=== PATIENT | male | born 1995 | race African-American/Black ===

== ENCOUNTER 2018-03-26 21:49 | Emergency (ER) | payer SELFPAY ==
[2018-03-26] MEDS ORDERED: Lidocaine 1% PF 5 ML VIAL ONE (22:19)
--- NOTE | 2018-03-26 22:43 | RAD ---
LEFT THUMB RADIOGRAPHS THREE VIEWS: 03/26/18 PROVIDED CLINICAL HISTORY: Left thumb pain status post injury. FINDINGS: No evidence for fracture or other acute osseous abnormality. Alignment appears anatomic. Joint spaces appear preserved. No evidence for radiopaque foreign body. IMPRESSION: No evidence for fracture. POS: [facility]
[2018-03-26] MEDS ORDERED: Bacitracin Zinc 1 Packet ONE (23:38)
== END 2018-03-26 23:46 | disposition home or self-care (01) ==
LOC: ERS 21:49
DX: S61.012A Laceration without foreign body of left thumb without damage to nail, initial encounter (principal); F17.210 Nicotine dependence, cigarettes, uncomplicated; W26.8XXA Contact with other sharp object(s), not elsewhere classified, initial encounter
CPT/HCPCS: 12002; J2001

== ENCOUNTER 2021-07-10 17:47 | Emergency (ER) | payer SELFPAY | END 2021-07-10 19:32 | disposition left against medical advice (07) | LOC: ERS 17:47 | DX: Z53.21 Procedure and treatment not carried out due to patient leaving prior to being seen by health care provider (principal) | CPT/HCPCS: 71046 ==

== ENCOUNTER 2022-10-16 09:18 | Emergency (ER) | payer OTHER, SELFPAY | END 2022-10-16 10:55 | disposition home or self-care (01) | LOC: ERS 09:18 | DX: T81.31XA Disruption of external operation (surgical) wound, not elsewhere classified, initial encounter (principal); F17.290 Nicotine dependence, other tobacco product, uncomplicated ==

== ENCOUNTER 2024-12-13 20:07 | Emergency (ER) | payer SELFPAY ==
[~2024-12-13 20:07] MED LIST: Iopamidol-370 76% 500 ML MDV (1 ML CHARGE) ONE
[2024-12-13 21:14] LABS: #Basophils Less than 0.03 10x3/uL (0.0-0.2); #Eosinophils 0.05 10x3/uL (0.0-0.7); #Monocytes 0.45 10x3/uL (0.11-0.59); #Neutrophils 4.92 10x3/uL (1.40-6.50); %Basophils 0.3 % (0.0-1.0); %Eosinophils 0.7 % (0.0-10.0); %Lymphocytes 24.6 % (21.0-51.0); %Monocytes 6.2 % (0.0-10.0); %Neutrophils 67.6 % (42.0-75.0); Hematocrit 39.3 % (42.0-52.0); Hemoglobin 13.2 g/dL (14.0-18.0); Mean Corpuscular Hemoglobin 28.4 pg (27.0-31.0); Mean Corpuscular Volume 84.7 fL (78.0-98.0); Platelet Count 224 10x3/uL (130-400); Red Blood Cell (RBC) Count 4.64 mill/uL (4.70-6.10); White Blood Cell (WBC) Count 7.27 10x3/uL (4.8-10.8)
[2024-12-13 21:27] LABS: ALT (SGPT) 18 U/L (Less than 45); AST (SGOT) 49 U/L (11-34); Albumin 4.6 g/dL (3.1-4.5); Alkaline Phosphatase 52 U/L (40-110); Anion Gap 15 mmol/L (10-20); BUN (Urea Nitrogen) 14 mg/dL (8.9-20.6); Bilirubin, Total 0.5 mg/dL (0.3-1.2); Calc. Creatinine Clearance 0 mL/min (70-130); Calcium 9.1 mg/dL (7.8-10.44); Carbon Dioxide 18 mmol/L (22-29); Chloride 107 mmol/L (98-107); Globulin 2.2 g/dL (2.4-3.5); Glucose 85 mg/dL (70-105); Lipase 77 U/L (8-78); Potassium 3.1 mmol/L (3.5-5.1); Sodium 137 mmol/L (136-145)
[2024-12-13 21:28] LABS: INR-International Normal Ratio 1.1; Prothrombin Time 14.0 sec (12.0-14.7)
[2024-12-13 21:29] LABS: PTT 22.0 sec (22.9-36.1)
[2024-12-13 22:27] LABS: Bacteria/HPF None Seen HPF (None Seen); CAUTI Indications for Culture Dysuria,urgency,freq; Glucose, Urine (Dipstick) Normal (Negative); Leukocyte Negative Leu/uL (Negative); Protein, Urine (Dipstick) 20 mg/dL (Neg-Trace); Specific Gravity, Urine 1.028 (1.002-1.036)
[2024-12-13 22:29] LABS: Urine Culture Reflex No No
[2024-12-13 22:30] LABS: Cocaine Metabolite Screen Negative (Negative); THC/Cannabinoid Screen PRELIM POSITIVE (Negative); Tricyclic Screen Negative (Negative)
== END 2024-12-13 22:26 | disposition home or self-care (01) ==
LOC: ERS 20:07
DX: S42.102A Fracture of unspecified part of scapula, left shoulder, initial encounter for closed fracture (principal); S27.322A Contusion of lung, bilateral, initial encounter; F10.129 Alcohol abuse with intoxication, unspecified; V89.2XXA Person injured in unspecified motor-vehicle accident, traffic, initial encounter
CPT/HCPCS: 29515; 36415; 70450; 71045; 71260; 72125; 74177; 80053; 80306; 80307; 81001; 83690; 85025; 85610; 85730; 86850; 86900; 86901; 93005; 94760; G0390; J3010; Q9967

== ENCOUNTER 2025-03-05 01:58 | Day surgery (SDC) | payer SELFPAY ==
[2025-03-05 02:52] LABS: Bacteria/HPF None Seen HPF (None Seen); CAUTI Indications for Culture Pelvic or flank pain; Glucose, Urine (Dipstick) Normal (Negative); Leukocyte Negative Leu/uL (Negative); Protein, Urine (Dipstick) Negative (Neg-Trace); RBC/HPF 0-3 HPF (0-3); Specific Gravity, Urine 1.020 (1.002-1.036); WBC/HPF 0-3 HPF (0-3)
[2025-03-05 02:54] LABS: Urine Culture Reflex No No
[2025-03-05] MEDS ORDERED: Lidocaine 1% PF 5 ML VIAL ONE (04:11)
[2025-03-05] MEDS ORDERED: fentaNYL PF 100 MCG/2 ML SYRINGE ONE (04:11)
[2025-03-05] MEDS ORDERED: Glycopyrrolate 0.2 MG/ML 5 ML SYRINGE ONE (04:38)
[2025-03-05] MEDS ORDERED: Rocuronium Bromide 10 MG/ML (10ML VIAL) ONE (04:38)
[2025-03-05] MEDS ORDERED: PROPOFOL 200 MG/20 ML VIAL ONE (04:38)
[2025-03-05] MEDS ORDERED: SUCCINYLCHOLINE/SOD CL,ISO/PF 200 MG/10 ML SYRINGE FS ONE (04:38)
[2025-03-05] MEDS ORDERED: Bacitracin Zinc Ointment 30 gm TUBE ONE (05:06)
[2025-03-05] MEDS ORDERED: Ondansetron PF 4 MG/2 ML Vial ONE (05:35)
[2025-03-05] MEDS ORDERED: SUGAMMADEX SODIUM 200 MG/2 ML VIAL ONE (05:36)
[2025-03-05 21:15] LABS: Chlam.trachomatis by PCR,Urine Not Detected (NotDetected); GC N.gonorrhoeae PCR,UrineVOID Not Detected (NotDetected)
== END 2025-03-05 08:00 | disposition home or self-care (01) ==
LOC: ERS 01:58 → SDC 04:27
PROVIDERS: ATTEND Urology
PROC: 0VQC0ZZ Repair Bilateral Testes, Open Approach (ICD-10-PCS; principal; 2025-03-05)
DX: N44.00 Torsion of testis, unspecified (principal)
CPT/HCPCS: 76870; 81001; 87491; 87591; 93976; 96374; J1100; J2405; J2704; J3373